=== PATIENT | male | born 1950 | race Caucasian/White ===

== ENCOUNTER 2016-09-27 09:00 | Day surgery (SDC) | payer MEDICARE, OTHER ==
[~2016-09-27] VITALS: Ht 172.7 cm; Wt 90.0 kg
[2016-09-27 09:28] VITALS: BP 111/80
[2016-09-27] MEDS ORDERED: NO MEDICATIONS (09:52)
[2016-09-27] MEDS ORDERED: PROPOFOL 10 MG/ML, 20ML ONE (10:15)
[2016-09-27] MEDS ORDERED: ONDANSETRON 2MG/ML, 2ML IVPush PRN (10:30)
[2016-09-27] MEDS ORDERED: hydrALAzine 20 MG/ML, 1ML IV PRN (10:30)
[2016-09-27] MEDS ORDERED: MEPERIDINE/PF 25MG/0.5ML IVPush PRN (10:30)
[2016-09-27] MEDS ORDERED: METOCLOPRAMIDE 5 MG/ML, 2ML IV PRN (10:30)
[2016-09-27] MEDS ORDERED: LABETALOL 5MG/ML, 20ML IV PRN (10:30)
[2016-09-27] MEDS ORDERED: ACETAMINOPHEN 325 MG TABLET PO PRN (10:30)
[2016-09-27] MEDS ORDERED: OXYcodone 5 MG/5 ML ORAL.SOL UDC PO PRN (10:30)
[2016-09-27] MEDS ORDERED: HYDROmorphone 1 MG/ML, 1ML IV PRN (10:30)
[2016-09-27] MEDS ORDERED: MIDAZOLAM 1 MG/ML, 2ML IV PRN (10:30)
[2016-09-27] MEDS ORDERED: FENTANYL PF 100 MCG/2ML IV PRN (10:30)
[2016-09-27] MEDS ORDERED: PROMETHAZINE 25 MG/ML, 1ML IV PRN (10:30)
[2016-09-27] MEDS ORDERED: OXYcodone 5 MG/5 ML ORAL.SOL UDC ONE (11:00)
== END 2016-09-27 12:10 | disposition home or self-care (01) ==
LOC: OUT 09:00
PROVIDERS: ATTEND Internal Medicine Gastroenterology
DX: K60.1 Chronic anal fissure (principal); K60.5 Anorectal fistula; I88.8 Other nonspecific lymphadenitis; Z72.89 Other problems related to lifestyle; Z87.19 Personal history of other diseases of the digestive system
CPT/HCPCS: 45341; 93005; J2704

== ENCOUNTER 2018-11-11 11:59 | Day surgery (SDC) | payer MEDICARE ==
[~2018-11-11] VITALS: Ht 172.7 cm; Wt 83.5 kg
[~2018-11-11 11:59] MED LIST: CALC625T23 PO; MULT-658 PO; NO MEDICATIONS; OMEG-76 PO
[2018-11-11 12:17] VITALS: BP 129/78
[2018-11-11] MEDS ORDERED: LACTATED RINGERS 1,000 ML IV SCH (12:20)
[2018-11-11] MEDS ORDERED: BUPIVACAINE/EPI 0.5% 1:200K ONE (13:33)
[2018-11-11] MEDS ORDERED: FENTANYL PF 100 MCG/2ML ONE (13:40)
[2018-11-11] MEDS ORDERED: NEOSTIGMINE 1 MG/ML, 10ML ONE (14:14)
[2018-11-11] MEDS ORDERED: GLYCOPYRROLATE 0.2MG/1ML, 5ML ONE (14:14)
[2018-11-11] MEDS ORDERED: SUCCINYLCHOLINE 20 MG/ML, 10ML ONE (14:14)
[2018-11-11] MEDS ORDERED: ONDANSETRON 2MG/ML, 2ML ONE (14:14)
[2018-11-11] MEDS ORDERED: PROPOFOL 10 MG/ML, 20ML ONE (14:14)
[2018-11-11] MEDS ORDERED: CEFAZOLIN 1,000 MG ONE (14:14)
[2018-11-11] MEDS ORDERED: DEXAMETHASONE 4 MG/ML, 1ML ONE (14:14)
[2018-11-11] MEDS ORDERED: ROCURONIUM 10MG/ML,5ML ONE (14:14)
[2018-11-11] MEDS ORDERED: PROMETHAZINE 25 MG/ML, 1ML IV PRN (14:30)
[2018-11-11] MEDS ORDERED: HYDROmorphone 2 MG/ML, 1ML IVPush PRN (14:30)
[2018-11-11] MEDS ORDERED: MEPERIDINE/PF 25MG/0.5ML IVPush PRN (14:30)
[2018-11-11] MEDS ORDERED: FENTANYL PF 100 MCG/2ML IV PRN (14:30)
[2018-11-11] MEDS ORDERED: ACETAMINOPHEN 325 MG TABLET PO PRN (14:30)
[2018-11-11] MEDS ORDERED: ONDANSETRON ODT 8 MG PO PRN (14:30)
[2018-11-11] MEDS ORDERED: ONDANSETRON 2MG/ML, 2ML IV PRN (14:30)
[2018-11-11] MEDS ORDERED: OXYcodone 5 MG/5 ML ORAL.SOL UDC PO PRN (14:30)
[2018-11-11] MEDS ORDERED: PROMETHAZINE 25 MG SUPP PR PRN (14:30)
== END 2018-11-11 16:25 | disposition home or self-care (01) ==
LOC: STAR 11:59
PROVIDERS: ATTEND Surgery
DX: T85.113A Breakdown (mechanical) of implanted electronic neurostimulator, generator, initial encounter (principal); Y83.8 Other surgical procedures as the cause of abnormal reaction of the patient, or of later complication, without mention of misadventure at the time of the procedure; Y92.89 Other specified places as the place of occurrence of the external cause; Z98.890 Other specified postprocedural states; Z72.89 Other problems related to lifestyle
CPT/HCPCS: 63685; C1767; J0330; J0690; J1100; J2405; J2704; J2710; J3010; J7120